=== PATIENT | female | born 1990 | race Caucasian/White ===

== ENCOUNTER 2018-09-02 18:27 | Emergency (ER) | payer OTHER ==
--- NOTE | 2018-09-02 19:42 | EDM.PDOC ---
ED HPI GENERAL MEDICAL PROBLEM - General Chief Complaint: Genitourinary Problem Stated Complaint: POSS UTI Time Seen by Provider: 09/02/18 19:14 Source of Information: Reports: Patient History Limitations: Reports: No Limitations - History of Present Illness INITIAL COMMENTS - FREE TEXT/NARRATIVE: 27 year old female present for evaluation and treatment of UTI symptoms. Reports symptoms started today. She reports symptoms of dysuria, increased urinary frequency, lower abdominal pain, subjective fevers and chills. She denies any nausea, vomiting, back pain or any vaginal discharge. She has not been taking Tylenol or Motrin but has been using Azo which did not give her any symptom relief. Reports she gets periodic UTIs, last one was about 2 years ago. Last menstrual period was 23 days ago. Primary care provider was Crista Fabian. Onset: Today Bladder Pain Score (Numeric/FACES): 7 - Related Data Allergies Allergy/AdvReac Type Severity Reaction Status Date / Time Sulfa (Sulfonamide Allergy Rash Verified 09/02/18 19:05 Antibiotics) Home Meds: Home Meds DULoxetine [Cymbalta] 20 mg PO DAILY 09/02/18 [History] Nitrofurantoin Monohyd/M-Cryst [Macrobid 100 mg Capsule] 100 mg PO BID #13 capsule 09/02/18 [Rx] Past Medical History Genitourinary History: Reports: UTI, Recurrent - Past Surgical History HEENT Surgical History: Reports: Oral Surgery Social & Family History - Tobacco Use Smoking Status *Q: Never Smoker - Caffeine Use Caffeine Use: Reports: Tea - Recreational Drug Use Recreational Drug Use: No ED ROS GENERAL - Review of Systems Review Of Systems: See Below Constitutional: Reports: Fever (Subjective), Chills GI/Abdominal: Reports: Abdominal Pain. Denies: Nausea, Vomiting : Reports: Dysuria, Frequency, Urgency, Other (Denies any vaginal discharge) Musculoskeletal: Reports: Back Pain ED EXAM, RENAL/ - Physical Exam Exam: See Below Exam Limited By: No Limitations General Appearance: Alert, WD/WN, No Apparent Distress Respiratory/Chest: No Respiratory Distress, Lungs Clear, Normal Breath Sounds Cardiovascular: Normal Peripheral Pulses, Regular Rate, Rhythm, No Murmur GI/Abdominal: Normal Bowel Sounds, Soft, Tender (Minor suprapubic tenderness) Back Exam: CVA Tenderness (R) Neurological: Alert, Oriented, Normal Cognition Psychiatric: Normal Affect, Normal Mood Skin Exam: Warm, Dry, Normal Color Course - Vital Signs Last Recorded V/S: Last Vital Signs Temp 98.1 F 09/02/18 19:01 Pulse 43 L 09/02/18 19:01 Resp 20 09/02/18 19:01 BP 110/81 09/02/18 19:01 Pulse Ox 100 09/02/18 19:01 - Orders/Labs/Meds Orders: Active Orders 24 hr Category Date Time Status CULTURE URINE [RM] Stat Lab 09/02/18 19:40 Received Labs: Laboratory Tests 09/02/18 Range/Units 19:40 Urine Color Yellow (Yellow) Urine Appearance Clear (Clear) Urine pH 7.0 (5.0-8.0) Ur Specific [place] 1.010 (1.005-1.030) Urine Protein Negative (Negative) Urine Glucose (UA) Negative (Negative) Urine Ketones Negative (Negative) Urine Occult Blood 1+ H (Negative) Urine Nitrite Positive H (Negative) Urine Bilirubin Negative (Negative) Urine Urobilinogen 0.2 (0.2-1.0) Ur Leukocyte Esterase 2+ H (Negative) Urine RBC 0-5 (0-5) /hpf Urine WBC 10-20 H (0-5) /hpf Ur Epithelial Cells 0-5 (0-5) /hpf Urine Bacteria Few (FEW) /hpf Urine Mucus Not seen (FEW) /hpf Meds: Medications Discontinued Medications Generic Name Dose Route Start Last Admin Trade Name Freq PRN Reason Stop Dose Admin Nitrofurantoin Macrocrystals 100 mg 09/02/18 20:28 09/02/18 20:41 Macrobid PO 09/02/18 20:29 100 mg ONETIME ONE Administration - Re-Assessments/Exams Free Text/Narrative Re-Assessment/Exam: 09/02/18 20:31 Reviewed the UA results with the patient. Will treat with Macrobid. discharge instructions as documented. Departure - Departure Time of Disposition: 20:28 Disposition: Home, Self-Care 01 Condition: Fair Clinical Impression: UTI, Urinary tract infectious disease - Discharge Information *PRESCRIPTION DRUG MONITORING PROGRAM REVIEWED*: No *COPY OF PRESCRIPTION DRUG MONITORING REPORT IN PATIENT [place]: No Prescriptions: Nitrofurantoin Monohyd/M-Cryst [Macrobid 100 mg Capsule] 100 mg PO BID #13 capsule Instructions: Urinary Tract Infection, Adult Referrals: PCP,None [Primary Care Provider] - Forms: ED Department Discharge Additional Instructions: Make sure you're drinking plenty of fluids. Recommend [id number] Azo for symptom relief. Ybob-aew-pyjygul Tylenol or Motrin seen for pain relief. Take the Macrobid as prescribed at 1 tab twice a day for 7 days. We will notify you of your culture requires a change in antibiotics. no new is good news, if you do not hear from us assume you're on the correct antibiotics. Follow-up with your primary care provider as needed. Please return the ER if your symptoms change or worsen. - My Orders Last 24 Hours: My Active Orders 09/02/18 19:40 CULTURE URINE [RM] Stat - Assessment/Plan Last 24 Hours: My Active Orders 09/02/18 19:40 CULTURE URINE [RM] Stat
[2018-09-02] MEDS ORDERED: Nitrofurantoin Monohydrate/Macrocrystalline 100 MG Cap PO ONE (20:28)
== END 2018-09-02 20:45 | disposition home or self-care (01) ==
LOC: JD.ED 18:27
DX: N39.0 Urinary tract infection, site not specified (principal); Z88.2 Allergy status to sulfonamides; Z79.899 Other long term (current) drug therapy
CPT/HCPCS: 81001; 87086; 99283; A9270

== ENCOUNTER 2019-08-01 06:09 | Inpatient (IN) | payer OTHER ==
[~2019-08-01 06:09] MED LIST: Bupivacaine 0.25% 10 ML SDV ONE
[2019-08-01] MEDS ORDERED: Ondansetron 4 MG/2 ML SDV IVPUSH PRN (06:46)
[2019-08-01] MEDS ORDERED: Calcium Carbonate 500 MG Tab.Chew PO PRN (06:46)
[2019-08-01] MEDS ORDERED: Nalbuphine 10 MG/ML Syringe IVPUSH PRN (06:46)
[2019-08-01] MEDS ORDERED: Sodium Chloride 0.9% 10 ML Syringe FLUSH PRN (06:46)
[2019-08-01] MEDS ORDERED: Acetaminophen 325 MG Tab PO PRN ×2 (06:46→22:51)
[2019-08-01] MEDS ORDERED: Lidocaine 1% 50 ML MDV INJECT ONE (06:46)
[2019-08-01] MEDS ORDERED: Oxytocin/Lactated Ringers 10 UNIT/1,000 ML BAG IV SCH ×2 (07:00)
--- NOTE | 2019-08-01 07:20 | PCM.LDHP ---
L&D History of Present Illness - General Date of Service: 08/01/19 Admit Problem/Dx: Patient Status Order with Admit Dx/Problem 08/01/19 06:28 Patient Status [ADT] Routine 08/01/19 06:46 Patient Status [ADT] Routine Admission Diagnosis/Problem Admission Diagnosis/Problem Active labor Source of Information: Patient History Limitations: Reports: No Limitations - History of Present Illness Introduction:: Patient is a 28 y/o at 38 0/7 wks who presents in early labor. Had some contractions and vaginal bleeding this AM which prompted evaluation. Notes contractions are manageable. Can speak through them still - Related Data Allergies/Adverse Reactions: Allergies Allergy/AdvReac Type Severity Reaction Status Date / Time Sulfa (Sulfonamide Allergy Hives Verified 08/01/19 06:29 Antibiotics) Home Medications: Home Meds Benzoyl Peroxide/Clindamycin [BenzaClin Gel] 25 gm .XX DAILY 08/01/19 [History] No122/Iron/Folic Acid [ Multi Tablet] 1 each PO DAILY 08/01/19 [History] Past Medical History [employer] History: Reports: : 1 Para: 0 Psychiatric History: Reports: Depression - Past Surgical History HEENT Surgical History: Reports: Oral Surgery Female Surgical History: Reports: LEEP Social & Family History - Tobacco Use Smoking Status *Q: Never Smoker - Caffeine Use Caffeine Use: Reports: Tea - Alcohol Use Alcohol Use History: No - Recreational Drug Use Recreational Drug Use: No H&P Review of Systems - Review of Systems: Review Of Systems: See Below General: Reports: No Symptoms Pulmonary: Reports: No Symptoms Cardiovascular: Reports: No Symptoms Gastrointestinal: Reports: Abdominal Pain Genitourinary: Reports: No Symptoms Musculoskeletal: Reports: No Symptoms Psychiatric: Reports: No Symptoms Neurological: Reports: No Symptoms L&D Exam - Exam Exam: See Below - Vital Signs Vital Signs: Last Vital Signs Temp 36.6 C 08/01/19 06:28 Pulse 59 L 08/01/19 06:28 Resp 16 08/01/19 06:28 BP 113/69 08/01/19 06:28 Pulse Ox 98 08/01/19 06:28 Weight: 80.83 kg - OB Specific Contraction Intensity: Mild to Moderate Movement: Active Heart Tones: Present Heart Tones per Min: 135 Heart Rate (FHR) Variability: Moderate (6-25 bmp) Presentation: Vertex - Dale Score Dale Score Cervix Position: Midposition Dale Score Consistency: Soft Dale Score Effacement: >80% Dale Score Dilation: 3-4 cm Dale Score 's Station: -1 ,0 Dale Score Total: 10 - Exam General: Alert, Oriented, Cooperative Lungs: Clear to Auscultation, Normal Respiratory Effort Cardiovascular: Regular Rate, Regular Rhythm GI/Abdominal Exam: Soft, Non-Tender Genitourinary: Normal external exam Extremities: Normal Inspection Skin: Warm, Dry, Intact - Patient Data Lab Results Last 24 hrs: Laboratory Results - last 24 hr 08/01/19 Range/Units 07:06 WBC 11.62 H (3.98-10.04) K/mm3 RBC 4.01 (3.98-5.22) M/mm3 Hgb 13.1 (11.2-15.7) gm/dl Hct 38.6 (34.1-44.9) % MCV 96.3 H (79.4-94.8) fl MCH 32.7 H (25.6-32.2) pg MCHC 33.9 (32.2-35.5) g/dl RDW Std Deviation 43.4 (36.4-46.3) fL Plt Count 182 (182-369) K/mm3 MPV 10.9 (9.4-12.3) fl Result Diagrams: 08/01/19 07:06 - Problem List (1) 38 weeks gestation of SNOMED Code(s): 79200177 ICD Code: Z3A.38 - 38 WEEKS GESTATION OF Status: Acute Current Visit: Yes (2) Normal labor SNOMED Code(s): 04196815 ICD Code: O80 - ENCOUNTER FOR FULL-TERM UNCOMPLICATED DELIVERY; Z37.9 - OUTCOME OF DELIVERY, UNSPECIFIED Status: Acute Current Visit: Yes Problem List Initiated/Reviewed/Updated: Yes Orders Last 24hrs: Active Orders 24 hr Category Date Time Status Patient Status [ADT] Routine ADT 08/01/19 06:46 Active Activity as Tolerated [RC] PFP Care 08/01/19 06:46 Active Communication Order [RC] ASDIRECTED Care 08/01/19 06:46 Active Heart Tones [RC] ASDIRECTED Care 08/01/19 06:47 Active Notify Provider [RC] PFP Care 08/01/19 06:46 Active Notify Provider [RC] PRN Care 08/01/19 06:46 Active Peripheral IV Care [RC] . DIRECTED Care 08/01/19 06:47 Active Pump Management, Intrathecal [RC] ASDIRECTED Care 08/01/19 06:47 Active Urinary Catheter Assessment [RC] ASDIRECTED Care 08/01/19 06:46 Active Regular Diet [DIET] Diet 08/01/19 Breakfast Active RAPID PLASMA REAGIN,RPR [CHEM] Stat Lab 08/01/19 06:46 Ordered TYPE AND SCREEN [BBK] Stat Lab 08/01/19 06:46 Ordered Acetaminophen [Tylenol] Med 08/01/19 06:46 Active 650 mg PO Q4H PRN Calcium Carbonate [Tums] Med 08/01/19 06:46 Active 1,000 mg PO Q2H PRN Lactated Ringers [Ringers, Lactated] 1,000 ml Med 08/01/19 07:00 Active IV ASDIRECTED Nalbuphine [Nubain] Med 08/01/19 06:46 Active 10 mg IVPUSH Q2H PRN Ondansetron [Zofran] Med 08/01/19 06:46 Active 4 mg IVPUSH Q4H PRN Oxytocin/Lactated Ringers [Pitocin in LR 10 Units/1,000 Med 08/01/19 07:00 Active ML] 10 unit in 1,000 ml IV .CONTINUOUS Oxytocin/Lactated Ringers [Pitocin in LR 10 Units/1,000 Med 08/01/19 07:00 Active ML] 10 unit in 1,000 ml IV TITRATE Sodium Chloride 0.9% [Saline Flush] Med 08/01/19 06:46 Active 10 ml FLUSH ASDIRECTED PRN Electronic Heart Tones Ext w TOCO [WOMSER] Oth 08/01/19 06:46 Ordered Routine Electronic Heart Tones Internal [WOMSER] Per Unit Ot 08/01/19 06:46 Ordered Routine Peripheral IV Insertion Adult [OM.PC] Routine Ot 08/01/19 06:46 Ordered Resuscitation Status Routine Resus Stat 08/01/19 06:28 Ordered Medication Orders Acetaminophen (Tylenol) 650 mg PO Q4H PRN PRN Reason: Pain (Mild 1-3) and fever Calcium Carbonate/Glycine (Tums) 1,000 mg PO Q2H PRN PRN Reason: Indigestion Lactated Ringer's (Ringers, Lactated) 1,000 mls @ 100 mls/hr IV ASDIRECTED ANNA Oxytocin/Lactated Ringer's (Pitocin In Lr 10 Units/1,000 Ml) 10 unit in 1,000 mls @ 12 mls/hr IV TITRATE ANNA; Protocol Oxytocin/Lactated Ringer's (Pitocin In Lr 10 Units/1,000 Ml) 10 unit in 1,000 mls @ 500 mls/hr IV .CONTINUOUS ANNA Nalbuphine HCl (Nubain) 10 mg IVPUSH Q2H PRN PRN Reason: Pain Ondansetron HCl (Zofran) 4 mg IVPUSH Q4H PRN PRN Reason: Nausea/Vomiting Sodium Chloride (Saline Flush) 10 ml FLUSH ASDIRECTED PRN PRN Reason: Keep Vein Open Assessment/Plan Comment:: * Labs done * GBS negative * Allow patient to labor on own for now. Can consider AROM if needed * Pain management per patient preference * Anticipate
[2019-08-01] MEDS: Lactated Ringers 1,000 ML IV SCH ×4 (10:37→19:03)
[2019-08-01] MEDS ORDERED: ePHEDrine 50 MG/ML SDV IVPUSH PRN (11:05)
[2019-08-01] MEDS ORDERED: diphenhydrAMINE 50 MG/ML SDV IVPUSH PRN (11:05)
[2019-08-01] MEDS ORDERED: Bupivacaine/fentaNYL/NS 100 ML Bag EPIDUR PRN (11:05)
[2019-08-01] MEDS: fentaNYL 100 MCG/2 ML SDV EPIDUR PRN ×2 (12:12→12:13)
--- NOTE | 2019-08-01 22:00 | PCM.DEL ---
L & D Note - General Info Date of Service: 08/01/19 - Delivery Note Labor: Spontaneous Delivery Outcome: Livebirth Delivery Method: Spontaneous Vaginal Delivery-Single Delivery Mode: Spontaneous Presentation: Left Occiput Anterior (QUYEN) Nuchal Cord: None Anesthesia Type: Epidural Amniotic Fluid Description: Clear Episiotomy Type: None Laceration: Labial Suture type: Vicryl Suture size: 2-0 Placenta: Intact, Spontaneous Cord: 3 Vessels Estimated Blood Loss: 100 Resuscitation Needed: Yes : Bulb Syringe, Stimulated, Warmed, [place] Used, Warmer Used Delivery Comments (Free Text/Narrative):: Patient found to be complete and began pushing. With maternal pushing effort head delivered from QUYEN presentation. No nuchal cord present. With gentle downward traction the shoulders and body delivered. placed on maternal abdomen. Cord clamped and cut. Cord blood obtained. Placenta allowed time to separate and expelled intact. Inspection of the perineum showed small bilateral labial lacerations. These were reapproximated with a 2- 0 vicryl in the typical fashion - General Info Date of Service: 08/01/19 - Patient Data Vitals - Most Recent: Last Vital Signs Temp 36.6 C 08/01/19 06:28 Pulse 71 08/01/19 07:42 Resp 16 08/01/19 06:28 BP 105/62 08/01/19 07:42 Pulse Ox 98 08/01/19 06:32 Weight - Most Recent: 80.83 kg I&O - Last 24 Hours: Intake & Output 08/01/19 08/01/19 08/01/19 06:59 14:59 22:59 Intake Total 120 Balance 120 Lab Results Last 24 Hours: Laboratory Results - last 24 hr 08/01/19 08/01/19 08/01/19 Range/Units 07:00 07:06 07:06 WBC 11.62 H (3.98-10.04) K/mm3 RBC 4.01 (3.98-5.22) M/mm3 Hgb 13.1 (11.2-15.7) gm/dl Hct 38.6 (34.1-44.9) % MCV 96.3 H (79.4-94.8) fl MCH 32.7 H (25.6-32.2) pg MCHC 33.9 (32.2-35.5) g/dl RDW Std Deviation 43.4 (36.4-46.3) fL Plt Count 182 (182-369) K/mm3 MPV 10.9 (9.4-12.3) fl RPR Non-reactive (NONREACTIVE) Blood Type O POSITIVE Gel Antibody Screen Negative Med Orders - Current: Current Medications Acetaminophen (Tylenol) 650 mg PO Q4H PRN PRN Reason: Pain (Mild 1-3) and fever Calcium Carbonate/Glycine (Tums) 1,000 mg PO Q2H PRN PRN Reason: Indigestion Diphenhydramine HCl (Benadryl) 25 mg IVPUSH Q6H PRN PRN Reason: pruritis Ephedrine Sulfate (Ephedrine Sulfate) 5 mg IVPUSH ASDIRECTED PRN PRN Reason: Hypotension Fentanyl (Sublimaze) 100 mcg EPIDUR Q3H PRN PRN Reason: Pain Last Admin: 08/01/19 12:13 Dose: 100 mcg Fentanyl/Bupivacaine HCl (Fentanyl/Bupivacaine/Ns 2 Mcg-0.125% 100 Ml) 100 ml EPIDUR ASDIRECTED PRN PRN Reason: Pain Lactated Ringer's (Ringers, Lactated) 1,000 mls @ 100 mls/hr IV ASDIRECTED ANNA Last Admin: 08/01/19 19:03 Dose: 999 mls/hr Oxytocin/Lactated Ringer's (Pitocin In Lr 10 Units/1,000 Ml) 10 unit in 1,000 mls @ 12 mls/hr IV TITRATE ANNA; Protocol Oxytocin/Lactated Ringer's (Pitocin In Lr 10 Units/1,000 Ml) 10 unit in 1,000 mls @ 500 mls/hr IV .CONTINUOUS ANNA Nalbuphine HCl (Nubain) 10 mg IVPUSH Q2H PRN PRN Reason: Pain Ondansetron HCl (Zofran) 4 mg IVPUSH Q4H PRN PRN Reason: Nausea/Vomiting Sodium Chloride (Saline Flush) 10 ml FLUSH ASDIRECTED PRN PRN Reason: Keep Vein Open Discontinued Medications Lidocaine HCl (Xylocaine 1%) 20 ml INJECT ONETIME ONE Stop: 08/01/19 06:47 - Problem List & Annotations (1) 38 weeks gestation of SNOMED Code(s): 79490246 Code(s): Z3A.38 - 38 WEEKS GESTATION OF Status: Acute Current Visit: Yes (2) Normal labor SNOMED Code(s): 97213859 Code(s): O80 - ENCOUNTER FOR FULL-TERM UNCOMPLICATED DELIVERY; Z37.9 - OUTCOME OF DELIVERY, UNSPECIFIED Status: Acute Current Visit: Yes (3) Vaginal delivery SNOMED Code(s): 372557917 Code(s): O80 - ENCOUNTER FOR FULL-TERM UNCOMPLICATED DELIVERY Status: Acute Current Visit: Yes - Problem List Review Problem List Initiated/Reviewed/Updated: Yes - My Orders Last 24 Hours: My Active Orders 08/01/19 06:28 Resuscitation Status Routine 08/01/19 06:46 Patient Status [ADT] Routine Activity as Tolerated [RC] PFP Communication Order [RC] ASDIRECTED Notify Provider [RC] PFP Notify Provider [RC] PRN Urinary Catheter Assessment [RC] ASDIRECTED Acetaminophen [Tylenol] 650 mg PO Q4H PRN Calcium Carbonate [Tums] 1,000 mg PO Q2H PRN Nalbuphine [Nubain] 10 mg IVPUSH Q2H PRN Ondansetron [Zofran] 4 mg IVPUSH Q4H PRN Sodium Chloride 0.9% [Saline Flush] 10 ml FLUSH ASDIRECTED PRN Electronic Heart Tones Ext w TOCO [WOMSER] Routine Electronic Heart Tones Internal [WOMSER] Per Unit Routine Peripheral IV Insertion Adult [OM.PC] Routine 08/01/19 06:47 Heart Tones [RC] ASDIRECTED Peripheral IV Care [RC] . DIRECTED 08/01/19 07:00 Lactated Ringers [Ringers, Lactated] 1,000 ml IV ASDIRECTED Oxytocin/Lactated Ringers [Pitocin in LR 10 Units/1,000 ML] 10 unit in 1,000 ml IV .CONTINUOUS Oxytocin/Lactated Ringers [Pitocin in LR 10 Units/1,000 ML] 10 unit in 1,000 ml IV TITRATE 08/01/19 08:28 PATIENT RETYPE [BBK] Routine 08/01/19 Breakfast Regular Diet [DIET] - Assessment Assessment:: PPD#0 - Plan Plan:: * Routine cares * Breast feeding * Discharge home in 2 days
[2019-08-01] MEDS ORDERED: Witch Hazel Medicated Pads 40/Jar TOP PRN (22:51)
[2019-08-01] MEDS ORDERED: Benzocaine/Menthol 20%-0.5% Spray 56 GM Canister TOP PRN (22:51)
[2019-08-01] MEDS: Ibuprofen 600 MG Tab PO PRN (23:38)
--- NOTE | 2019-08-02 07:51 | PCM48HPAN ---
Post Anesthesia Note - EVALUATION WITHIN 48HRS OF ANESTHETIC Vital Signs in Normal Range: Yes Patient Participated in Evaluation: Yes Respiratory Function Stable: Yes Airway Patent: Yes Cardiovascular Function Stable: Yes Hydration Status Stable: Yes Pain Control Satisfactory: Yes Nausea and Vomiting Control Satisfactory: Yes Mental Status Recovered: Yes Vital Signs: Last Vital Signs Temp 36.4 C 08/02/19 04:09 Pulse 61 08/02/19 04:09 Resp 16 08/02/19 04:09 BP 100/62 08/02/19 04:09 Pulse Ox 99 08/02/19 04:09
--- NOTE | 2019-08-02 09:30 | PCM.PNPP ---
- General Info Date of Service: 08/02/19 Functional Status: Reports: Pain Controlled, Tolerating Diet, Ambulating, Urinating - Review of Systems General: Reports: No Symptoms Pulmonary: Reports: No Symptoms Cardiovascular: Reports: No Symptoms Gastrointestinal: Reports: No Symptoms Genitourinary: Reports: No Symptoms Musculoskeletal: Reports: No Symptoms Neurological: Reports: No Symptoms - Patient Data Vital Signs - Most Recent: Last Vital Signs Temp 36.3 C 08/02/19 08:40 Pulse 52 L 08/02/19 08:40 Resp 14 08/02/19 08:40 BP 106/63 08/02/19 08:40 Pulse Ox 100 08/02/19 08:40 Weight - Most Recent: 80.83 kg I&O - Last 24 Hours: Intake & Output 08/01/19 08/02/19 08/02/19 22:59 06:59 14:59 Intake Total 4850 240 Balance 4850 240 Lab Results - Last 24 Hours: Laboratory Results - last 24 hr 08/01/19 Range/Units 07:06 RPR Non-reactive (NONREACTIVE) Med Orders - Current: Current Medications Acetaminophen (Tylenol) 650 mg PO Q4H PRN PRN Reason: mild pain or fever Benzocaine/Menthol (Dermoplast Pain Relief [place]) 0 gm TOP ASDIRECTED PRN PRN Reason: Perineal Comfort Measure Last Admin: 08/01/19 23:39 Dose: 1 canister Docusate Sodium (Colace) 100 mg PO BID PRN PRN Reason: Constipation Ibuprofen (Motrin) 600 mg PO Q6H PRN PRN Reason: Mild pain or fever Last Admin: 08/01/19 23:38 Dose: 600 mg [place] (Tucks) 1 pad TOP ASDIRECTED PRN PRN Reason: Perineal Comfort Measure Last Admin: 08/01/19 23:39 Dose: 1 tub Discontinued Medications Acetaminophen (Tylenol) 650 mg PO Q4H PRN PRN Reason: Pain (Mild 1-3) and fever Bupivacaine HCl (Sensorcaine-Mpf 0.25%) 10 ml .ROUTE .STK-MED ONE Stop: 08/01/19 00:01 Calcium Carbonate/Glycine (Tums) 1,000 mg PO Q2H PRN PRN Reason: Indigestion Diphenhydramine HCl (Benadryl) 25 mg IVPUSH Q6H PRN PRN Reason: pruritis Ephedrine Sulfate (Ephedrine Sulfate) 5 mg IVPUSH ASDIRECTED PRN PRN Reason: Hypotension Fentanyl (Sublimaze) 100 mcg EPIDUR Q3H PRN PRN Reason: Pain Last Admin: 08/01/19 12:13 Dose: 100 mcg Fentanyl/Bupivacaine HCl (Fentanyl/Bupivacaine/Ns 2 Mcg-0.125% 100 Ml) 100 ml EPIDUR ASDIRECTED PRN PRN Reason: Pain Last Admin: 08/01/19 21:30 Dose: 100 ml Lactated Ringer's (Ringers, Lactated) 1,000 mls @ 100 mls/hr IV ASDIRECTED ANNA Last Admin: 08/01/19 19:03 Dose: 999 mls/hr Oxytocin/Lactated Ringer's (Pitocin In Lr 10 Units/1,000 Ml) 10 unit in 1,000 mls @ 12 mls/hr IV TITRATE ANNA; Protocol Oxytocin/Lactated Ringer's (Pitocin In Lr 10 Units/1,000 Ml) 10 unit in 1,000 mls @ 500 mls/hr IV .CONTINUOUS ANNA Last Admin: 08/01/19 21:47 Dose: 500 mls/hr Lidocaine HCl (Xylocaine 1%) 20 ml INJECT ONETIME ONE Stop: 08/01/19 06:47 Nalbuphine HCl (Nubain) 10 mg IVPUSH Q2H PRN PRN Reason: Pain Ondansetron HCl (Zofran) 4 mg IVPUSH Q4H PRN PRN Reason: Nausea/Vomiting Sodium Chloride (Saline Flush) 10 ml FLUSH ASDIRECTED PRN PRN Reason: Keep Vein Open - Infant Interaction Disposition, : [place] in Room with Family Interaction: Holding Feeding: Attempted ; Nursed Fair/Poor Support Person: Mother - Recovery Exam Fundal Tone: Firm Fundal Level: 2 Fingerbreadths Below Umbilicus Fundal Placement: Midline Lochia Amount: Small Lochia Color: Rubra/Red Perineum Description: Other (see below) Other Perinuem Description: 1st degree with repair Bladder Status: Voiding Urinary Elimination: Voided - Exam General: Alert, Oriented, Cooperative GI/Abdominal Exam: Soft, Non-Tender Extremities: Normal Inspection - Problem List & Annotations (1) 38 weeks gestation of SNOMED Code(s): 51117251 Code(s): Z3A.38 - 38 WEEKS GESTATION OF Status: Acute Current Visit: Yes (2) Normal labor SNOMED Code(s): 33433147 Code(s): O80 - ENCOUNTER FOR FULL-TERM UNCOMPLICATED DELIVERY; Z37.9 - OUTCOME OF DELIVERY, UNSPECIFIED Status: Acute Current Visit: Yes (3) Vaginal delivery SNOMED Code(s): 496560226 Code(s): O80 - ENCOUNTER FOR FULL-TERM UNCOMPLICATED DELIVERY Status: Acute Current Visit: Yes - Problem List Review Problem List Initiated/Reviewed/Updated: Yes - My Orders Last 24 Hours: My Active Orders 08/01/19 22:51 Activity as Tolerated [RC] PER UNIT ROUTINE Vital Signs [RC] 21,03,09,15 Acetaminophen [Tylenol] 650 mg PO Q4H PRN Benzocaine/Menthol [Dermoplast Pain Relief [place]] See Dose Instructions TOP ASDIRECTED PRN Docusate Sodium [Colace] 100 mg PO BID PRN Ibuprofen [Motrin] 600 mg PO Q6H PRN witch [place] [Tucks] 1 pad TOP ASDIRECTED PRN Assess Lochia [WOMSER] Per Unit Routine Assess Uterine Involution [WOMSER] Per Unit Routine Breast Pump [WOMSER] Per Unit Routine Heat Therapy [OM.PC] PRN Ice Therapy [OM.PC] Per Unit Routine Perineal Care [OM.PC] Per Unit Routine Peripheral IV Discontinue [OM.PC] Routine Sitz Bath [OM.PC] Per Unit Routine 08/02/19 22:51 Heat Therapy [OM.PC] PRN - Assessment Assessment:: PPD#1 - Plan Plan:: * Routine cares * Breast feeding * Discharge home tomorrow
[2019-08-02] MEDS: Ibuprofen 600 MG Tab PO PRN ×2 (15:27→21:27)
[2019-08-02] MEDS: Docusate Sodium 100 MG Cap PO PRN (21:29)
[2019-08-03] MEDS: Ibuprofen 600 MG Tab PO PRN ×2 (03:36→08:59)
[2019-08-03] MEDS: Docusate Sodium 100 MG Cap PO PRN (08:59)
[2019-08-03] MEDS ORDERED: Measles, Mumps & Rubella Vaccine 0.5 ML SDV SUBCUT ONE (09:19)
--- NOTE | 2019-08-03 09:35 | PCM.DCSUM1 ---
Discharge Summary - Hospital Course Free Text/Narrative:: Ebony is a 28-year-old 1 now para 1001 white female who delivered a berrios, viable, male infant via . Patient had an epidural for analgesia. She had a single labial laceration which was repaired with Vicryl. patient is done well. She is nursing without problems. She has minimal lochia, is voiding well and has been ambulating without concerns. She is desiring discharge home. Diagnosis: Stroke: No - Discharge Data Discharge Date: 08/03/19 Discharge Disposition: Home, Self-Care 01 Condition: Good - Referral to Home Health Primary Care Physician: Claudia Gerardo MD - Patient Instructions Diet: Regular Diet as Tolerated (Nursing diet with increase calories and calcium as recommended) Activity: As Tolerated (No intercourse or tampons until bleeding resolves) Driving: May Drive Today Showering/Bathing: May Shower (May take a bath) Notify Provider of: Fever, Increased Pain, Swelling and Redness, Nausea and/or Vomiting - Discharge Plan Home Medications: Home Meds Benzoyl Peroxide/Clindamycin [BenzaClin Gel] 25 gm .XX DAILY 08/01/19 [History] No122/Iron/Folic Acid [ Multi Tablet] 1 each PO DAILY 08/01/19 [History] Acetaminophen [Tylenol] 650 mg PO Q4H PRN tablet 08/03/19 [Rx] Ibuprofen [Motrin] 600 mg PO Q6H PRN tablet 08/03/19 [Rx] Referrals: Claudia Gerardo MD [Primary Care Provider] - (Patient is to call [facility] in [place], [place] for follow-up appointment with Dr. Gerardo.) - Discharge Summary/Plan Comment DC Time >30 min.: No Discharge Summary/Plan Comment: Discharge instructions: 1. Discharge home 2. Diet, activity and follow-up discussed with patient. Recommend nursing diet with increased calories and calcium. 3. Precautions given concern increased pain, bleeding, temperature, signs/ symptoms of DVT/PE. 4. Medications per home medication was printed, discussed with and given to the patient. 5. She is to call [facility] in [place], [place] for follow-up appointment with Dr. Gerardo. Diagnosis: Term -delivered Condition: Good - Patient Data Vitals - Most Recent: Last Vital Signs Temp 36.6 C 08/03/19 03:34 Pulse 58 L 08/03/19 03:34 Resp 14 08/03/19 03:34 BP 100/63 08/03/19 03:34 Pulse Ox 99 08/03/19 03:34 Weight - Most Recent: 80.83 kg Med Orders - Current: Current Medications Acetaminophen (Tylenol) 650 mg PO Q4H PRN PRN Reason: mild pain or fever Benzocaine/Menthol (Dermoplast Pain Relief [place]) 0 gm TOP ASDIRECTED PRN PRN Reason: Perineal Comfort Measure Last Admin: 08/01/19 23:39 Dose: 1 canister Docusate Sodium (Colace) 100 mg PO BID PRN PRN Reason: Constipation Last Admin: 08/03/19 08:59 Dose: 100 mg Ibuprofen (Motrin) 600 mg PO Q6H PRN PRN Reason: Mild pain or fever Last Admin: 08/03/19 08:59 Dose: 600 mg Witch Elyssa (Tucks) 1 pad TOP ASDIRECTED PRN PRN Reason: Perineal Comfort Measure Last Admin: 08/01/19 23:39 Dose: 1 tub Discontinued Medications Acetaminophen (Tylenol) 650 mg PO Q4H PRN PRN Reason: Pain (Mild 1-3) and fever Bupivacaine HCl (Sensorcaine-Mpf 0.25%) 10 ml .ROUTE .STK-MED ONE Stop: 08/01/19 00:01 Calcium Carbonate/Glycine (Tums) 1,000 mg PO Q2H PRN PRN Reason: Indigestion Diphenhydramine HCl (Benadryl) 25 mg IVPUSH Q6H PRN PRN Reason: pruritis Ephedrine Sulfate (Ephedrine Sulfate) 5 mg IVPUSH ASDIRECTED PRN PRN Reason: Hypotension Fentanyl (Sublimaze) 100 mcg EPIDUR Q3H PRN PRN Reason: Pain Last Admin: 08/01/19 12:13 Dose: 100 mcg Fentanyl/Bupivacaine HCl (Fentanyl/Bupivacaine/Ns 2 Mcg-0.125% 100 Ml) 100 ml EPIDUR ASDIRECTED PRN PRN Reason: Pain Last Admin: 08/01/19 21:30 Dose: 100 ml Lactated Ringer's (Ringers, Lactated) 1,000 mls @ 100 mls/hr IV ASDIRECTED ANNA Last Admin: 08/01/19 19:03 Dose: 999 mls/hr Oxytocin/Lactated Ringer's (Pitocin In Lr 10 Units/1,000 Ml) 10 unit in 1,000 mls @ 12 mls/hr IV TITRATE ANNA; Protocol Oxytocin/Lactated Ringer's (Pitocin In Lr 10 Units/1,000 Ml) 10 unit in 1,000 mls @ 500 mls/hr IV .CONTINUOUS ANNA Last Admin: 08/01/19 21:47 Dose: 500 mls/hr Lidocaine HCl (Xylocaine 1%) 20 ml INJECT ONETIME ONE Stop: 08/01/19 06:47 Last Admin: 08/02/19 10:48 Dose: Not Given Measles/Mumps/Rubella Vaccine Live (M-M-R Ii Vaccine) 0.5 ml SUBCUT .ONCE ONE Stop: 08/03/19 09:20 Nalbuphine HCl (Nubain) 10 mg IVPUSH Q2H PRN PRN Reason: Pain Ondansetron HCl (Zofran) 4 mg IVPUSH Q4H PRN PRN Reason: Nausea/Vomiting Sodium Chloride (Saline Flush) 10 ml FLUSH ASDIRECTED PRN PRN Reason: Keep Vein Open
--- NOTE | 2019-08-06 10:24 | PCM.PREANE ---
Preanesthetic Assessment - Procedure Proposed Procedure: Labor Epidural - Anesthesia/Transfusion/Family Hx Anesthesia History: Prior Anesthesia Without Reaction Transfusion History: No Prior Transfusion(s) - Review of Systems General: No Symptoms Pulmonary: No Symptoms Cardiovascular: No Symptoms Gastrointestinal: No Symptoms Neurological: No Symptoms Other: Reports: None - Physical Assessment Vital Signs: Last Vital Signs Temp 36.7 C 08/03/19 08:55 Pulse 61 08/03/19 08:55 Resp 16 08/03/19 08:55 BP 89/65 L 08/03/19 08:55 Pulse Ox 97 08/03/19 08:55 Height: 1.83 m Weight: 80.83 kg ASA Class: 2 Mental Status: Alert & Oriented x3 Airway Class: Mallampati = 2 Dentition: Reports: Normal Dentition Thyro-Mental Finger Breadths: 3 Mouth Opening Finger Breadths: 3 ROM/Head Extension: Full Lungs: Clear to Auscultation, Normal Respiratory Effort Cardiovascular: Regular Rate, Regular Rhythm - Lab Values: Laboratory Last Values WBC 11.62 K/mm3 (3.98-10.04) H 08/01/19 07:06 RBC 4.01 M/mm3 (3.98-5.22) 08/01/19 07:06 Hgb 13.1 gm/dl (11.2-15.7) 08/01/19 07:06 Hct 38.6 % (34.1-44.9) 08/01/19 07:06 MCV 96.3 fl (79.4-94.8) H 08/01/19 07:06 MCH 32.7 pg (25.6-32.2) H 08/01/19 07:06 MCHC 33.9 g/dl (32.2-35.5) 08/01/19 07:06 RDW Std Deviation 43.4 fL (36.4-46.3) 08/01/19 07:06 Plt Count 182 K/mm3 (182-369) 08/01/19 07:06 MPV 10.9 fl (9.4-12.3) 08/01/19 07:06 RPR Non-reactive (NONREACTIVE) 08/01/19 07:06 Blood Type O POSITIVE 08/01/19 07:00 Gel Antibody Screen Negative 08/01/19 07:00 - Allergies Allergies/Adverse Reactions: Allergies Allergy/AdvReac Type Severity Reaction Status Date / Time Sulfa (Sulfonamide Allergy Hives Verified 08/01/19 06:29 Antibiotics) - Acknowledgements Anesthesia Type Planned: Epidural Pt an Appropriate Candidate for the Planned Anesthesia: Yes Alternatives and Risks of Anesthesia Discussed w Pt/Guardian: Yes Pt/Guardian Understands and Agrees with Anesthesia Plan: Yes PreAnesthesia Questionnaire Genitourinary History: Reports: UTI, 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: Reports: Psychiatric History: Reports: Depression Other Psychiatric History: was on medication in 2018 but none for over a year - Past Surgical History HEENT Surgical History: Reports: Oral Surgery Female Surgical History: Reports: LEEP - SUBSTANCE USE Smoking Status *Q: Never Smoker Second Hand Smoke Exposure: No Recreational Drug Use History: No - HOME MEDS Home Medications: Home Meds Benzoyl Peroxide/Clindamycin [BenzaClin Gel] 25 gm .XX DAILY 08/01/19 [History] No122/Iron/Folic Acid [ Multi Tablet] 1 each PO DAILY 08/01/19 [History] Acetaminophen [Tylenol] 650 mg PO Q4H PRN tablet 08/03/19 [Rx] Ibuprofen [Motrin] 600 mg PO Q6H PRN tablet 08/03/19 [Rx] - CURRENT (IN HOUSE) MEDS Current Meds: Current Medications Discontinued Medications Acetaminophen (Tylenol) 650 mg PO Q4H PRN PRN Reason: Pain (Mild 1-3) and fever Acetaminophen (Tylenol) 650 mg PO Q4H PRN PRN Reason: mild pain or fever Benzocaine/Menthol (Dermoplast Pain Relief [place]) 0 gm TOP ASDIRECTED PRN PRN Reason: Perineal Comfort Measure Last Admin: 08/01/19 23:39 Dose: 1 canister Bupivacaine HCl (Sensorcaine-Mpf 0.25%) 10 ml .ROUTE .STK-MED ONE Stop: 08/01/19 00:01 Calcium Carbonate/Glycine (Tums) 1,000 mg PO Q2H PRN PRN Reason: Indigestion Diphenhydramine HCl (Benadryl) 25 mg IVPUSH Q6H PRN PRN Reason: pruritis Docusate Sodium (Colace) 100 mg PO BID PRN PRN Reason: Constipation Last Admin: 08/03/19 08:59 Dose: 100 mg Ephedrine Sulfate (Ephedrine Sulfate) 5 mg IVPUSH ASDIRECTED PRN PRN Reason: Hypotension Fentanyl (Sublimaze) 100 mcg EPIDUR Q3H PRN PRN Reason: Pain Last Admin: 08/01/19 12:13 Dose: 100 mcg Fentanyl/Bupivacaine HCl (Fentanyl/Bupivacaine/Ns 2 Mcg-0.125% 100 Ml) 100 ml EPIDUR ASDIRECTED PRN PRN Reason: Pain Last Admin: 08/01/19 21:30 Dose: 100 ml Lactated Ringer's (Ringers, Lactated) 1,000 mls @ 100 mls/hr IV ASDIRECTED ANNA Last Admin: 08/01/19 19:03 Dose: 999 mls/hr Oxytocin/Lactated Ringer's (Pitocin In Lr 10 Units/1,000 Ml) 10 unit in 1,000 mls @ 12 mls/hr IV TITRATE ANNA; Protocol Oxytocin/Lactated Ringer's (Pitocin In Lr 10 Units/1,000 Ml) 10 unit in 1,000 mls @ 500 mls/hr IV .CONTINUOUS ANNA Last Admin: 08/01/19 21:47 Dose: 500 mls/hr Ibuprofen (Motrin) 600 mg PO Q6H PRN PRN Reason: Mild pain or fever Last Admin: 08/03/19 08:59 Dose: 600 mg Lidocaine HCl (Xylocaine 1%) 20 ml INJECT ONETIME ONE Stop: 08/01/19 06:47 Last Admin: 08/02/19 10:48 Dose: Not Given Measles/Mumps/Rubella Vaccine Live (M-M-R Ii Vaccine) 0.5 ml SUBCUT .ONCE ONE Stop: 08/03/19 09:20 Last Admin: 08/03/19 09:33 Dose: 0.5 ml Nalbuphine HCl (Nubain) 10 mg IVPUSH Q2H PRN PRN Reason: Pain Ondansetron HCl (Zofran) 4 mg IVPUSH Q4H PRN PRN Reason: Nausea/Vomiting Sodium Chloride (Saline Flush) 10 ml FLUSH ASDIRECTED PRN PRN Reason: Keep Vein Open Witteddy Richel (Tucks) 1 pad TOP ASDIRECTED PRN PRN Reason: Perineal Comfort Measure Last Admin: 08/01/19 23:39 Dose: 1 tub
== END 2019-08-03 10:05 | disposition home or self-care (01) | DRG 807 ==
LOC: JD.OBCHECK 06:09 → JD.OB 06:20 → JD.OBCHECK 06:45 → JD.OB 06:46 → OBSVTOIN 21:46
PROVIDERS: ADMIT Obstetrics & Gynecology; ATTEND Obstetrics & Gynecology
PROC: 10E0XZZ Delivery of Products of Conception, External Approach (ICD-10-PCS; principal; 2019-08-01)
PROC: 0UQMXZZ Repair Vulva, External Approach (ICD-10-PCS; 2019-08-01)
PROC: 3E0R3BZ Introduction of Anesthetic Agent into Spinal Canal, Percutaneous Approach (ICD-10-PCS; 2019-08-01)
DX: O70.0 First degree perineal laceration during delivery (principal); Z37.0 Single live birth; Z3A.38 38 weeks gestation of pregnancy
CPT/HCPCS: 01967; 36415; 51701; 51702; 59025; 59409; 85027; 86592; 86850; 86900; 86901; 90471; 90707; A9270-GY; J2590; J3010; J3490; J7120